=== PATIENT | female | born 1985 | race Caucasian/White ===

== ENCOUNTER 2019-05-06 06:14 | Day surgery (SDC) | payer OTHER, SELFPAY ==
[2019-05-06] VITALS (16 sets, daily range): BP systolic 103–140; BP diastolic 59–85; PULSE 45–81; RESP 8–16; TEMP 36.2–37.1; O2SAT 96–99; BMI 32.2
--- NOTE | 2019-05-06 | PATH_ITS ---
[facility] Accession Number: [id number] . 01 Material submitted: . uterus - UTERUS, BILATERAL FALLOPIAN TUBES . 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 With Bilateral Fallopian Tubes: Inactive endometrium, negative for atypia. Multifocal adenomyosis, negative for atypia. Multiple small paratubal cysts, negative for atypia. MRV/05/08/2019 . 02 Electronically signed: . Flynn Carey MD, Pathologist NPI- [id number] . 01 Gross description: . Received in formalin, labeled uterus, bilateral fallopian tubes, is a morcellated uterus (161 grams, 14.8 x 12.0 x 4.3 cm in aggregate) and two fimbriated fallopian tubes (tube #1: length-5.8 cm, diameter-0.3 cm; tube #2: length-6.1 cm, diameter-0.3 cm). The cervix and ovaries are absent. The specimen cannot be oriented and the endometrium and myometrium cannot be grossly measured. The parenchyma is rousseau and unremarkable. The serosa is rousseau smooth and shiny. The fallopian tubes have rousseau-asher smooth shiny serosa with multiple paratubal cysts (0.1 cm-0.8 cm) containing clear colorless fluid. The lumens are rousseau and unremarkable. Section code: (A1-A4) parenchyma, airline security representative; (A5) fallopian tube #1, airline security representative serial sections; (A6) fimbria #1, bivalved, entirely submitted; (A7) fallopian tube #2, airline security representative serial sections; (A8) fimbria #2, bivalved, entirely submitted. ([id number]) /MRV . 02 Pathologist provided ICD-10: N80.0 . 02 CPT . 337124 Performed at: 01 [facility] [address] [id number] MD Magno Miguel MD Phone: [phone] Performed at: 02 [facility] [address] [place], [place] [id number] MD Bethanie Biggs MD Phone: [phone]
[2019-05-06] MEDS: LACTATED RINGERS 1,000 ML 100 ML IV (07:10)
[2019-05-06] MEDS: CEFAZOLIN 2 GM/100 ML FROZ.PIGGY IV (07:55)
--- NOTE | 2019-05-06 08:44 | SUR.OPER ---
Lithotomy on padded OR bed. Alexander Pad Positioner under torso. Head on pillow, arms padded and tucked at sides. Legs secured in padded yellow fins stirrups.
[2019-05-06] MEDS: BUPIVACAINE 0.5% W/ EPI (PF) VIAL 30 ML INJ (09:12)
[2019-05-06] MEDS: ROPIVACAINE 0.2% PF 2 MG/ML 10ML AMP 20 ML INJ (09:14)
--- NOTE | 2019-05-06 09:54 | PM.PREOP ---
Pre-operative Note Interval Note History & Physical reviewed/Exam performed by Physician: Yes Changes to H&P: No
[2019-05-06] MEDS: fentaNYL 100 MCG/2 ML INJ 50 MCG IV ×2 (10:03→10:08)
[2019-05-06] MEDS: ONDANSETRON 4 MG/2 ML INJ IV (10:36)
--- NOTE | 2019-05-06 10:36 | SUR.PHASEI ---
pt. stating I'm starting to feel nauseated, this author gave pt. QueaseEase to breath in aroma as well as reglan IV
--- NOTE | 2019-05-06 10:39 | SUR.PHASEI ---
Pt. continues to be groggy while in PACU; VSS, pain level improving but still requiring 02 via NC @ 2L
[2019-05-06] MEDS: METOCLOPRAMIDE 10 MG/2 ML INJ IV (10:50)
--- NOTE | 2019-05-06 10:50 | SUR.PHASEI ---
pt. sat up for emesis, approx 50cc bile contents; medicated with additional antiemedic
--- NOTE | 2019-05-06 10:53 | SUR.PHASEI ---
addendum (correction) to first note, zofran given initially for nausea, when pt. had emesis the additional antiemedic given was reglan
--- NOTE | 2019-05-06 11:06 | SUR.PHASEI ---
At this time pt. appeared stable enough to move to phase II, after disconnecting monitor lines, pt. began to have emesis. Anesthesia aware, will continue to monitor pt. in PACU allowing pt. wake up more and observe for further nausea. Reported off to Bethanie CROCKER at this point.
--- NOTE | 2019-05-06 11:29 | SUR.PHASEI ---
Pt. continues to have dry heaves, will notify anesthesia.
--- NOTE | 2019-05-06 11:39 | SUR.PHASEI ---
Anesthesia ordered a scopalamine patch at this time
[2019-05-06] MEDS: SCOPOLAMINE 1 PATCH TOP (11:50)
--- NOTE | 2019-05-06 11:56 | SUR.PHASEI ---
'scopolamine patch applied behind right ear, will monitor effects.
[2019-05-06] MEDS: TRAMADOL 50 MG TABLET 100 MG PO (12:43)
--- NOTE | 2019-05-06 14:19 | SUR.PHASEII ---
Pt able to urinate without issue. pain controlled with PO tramadol. up with 1 person asst. d/c instructions provided to pt and her . aware to contact MD to make f/u apt as well as for any additional questions or concerns. Dressings were CDI. pt left in w/c with RN escort.
--- NOTE | 2019-05-07 08:12 | P.OP_ITS ---
Operative Date/Time/Diagnoses Date of procedure: 05/06/19 Time of procedure: 10:00 Pre-op diagnosis: Abnormal uterine bleeding Fibroid uterus Post-op diagnosis: same Procedure: Procedures Operation Date: 05/06/19 07:45 Actual Procedures Side Surgeon p Laparoscopic Supracervical Hysterectomy with bilateral salpingectomy, removal of mirena IUD Eleonora Skinner MD Indications: Abnormal uterine bleeding Fibroid uterus Surgeon: Eleonora Skinner Research Computing Specialist: Sekou Alexis Anesthesia Type: General Operative Notes Findings: Ten week size fibroid uterus 3 cm simple left ovarian cyst Normal tubes Normal right ovary Normal liver, gallbladder, and appendix Closure Type: primary Specimen(s): left tube, right tube and uterus Applied: catheter (Removed at the end of the case) Estimated blood loss (mL): 75 Blood products transfused: none Procedure in detail: The patient was taken to the operating room where she was placed in the dorsal supine position. After adequate general endotracheal anesthesia was achieved, she was placed in the dorsal lithotomy position, and prepped and draped in the usual sterile fashion. A timeout was performed. A bivalve speculum was placed into the vagina and the anterior lip of the cervix grasped with a single-tooth tenaculum. The cervical os was sequentially dilated until the ZUMI uterine manipulator could pass easily into the endometrial cavity. The single-tooth tenaculum was removed from the anterior lip of the cervix, and the bivalve speculum was removed from the vagina. Attention was then turned to the abdomen where 6 mL of half percent Marcaine with epinephrine were injected in the umbilical fold. A 5 mm incision was made. The Verhees needle was placed into the peritoneal cavity, and its placement confirmed by aspiration and drop test. The Verhees needle was removed. A 5 mm trocar was placed without difficulty. 2 other incisions were made midway between the pubic symphysis and umbilicus after 5 mL of half percent Marcaine with epinephrine were injected. These were 5 mm incisions. Two 5 mm trochars were placed under direct visualization. The right tube was grasped with an atraumatic grasper. Using the plasma kinetic with settings of 40 W the mesosalpinx was cauterized and cut all the way down to the cornua of the uterus. The cornua of the uterus was then grasped with an atraumatic grasper. The utero-ovarian ligaments were cauterized and cut. The round ligament and broad ligament was cauterized and cut with plasma kinetic. Hemostasis was achieved. The bladder flap was created using the plasma kinetic with cautery and cut retirement across. The uterine arteries on the right side were extensively cauterized with plasma kinetic. All of this was repeated on the left side. The remainder of the bladder flap was created using the plasma kinetic, and the bladder taken down off the lower uterine segment and cervix. The Zumi uterine manipulator was removed from the uterus. A moistened sponge stick was placed into the vagina. Using the En doloop, the cervix was amputated from the uterus 2 cm above the uterosacral ligaments, after the ZUMI uterine manipulator was removed from the uterus. There was a small amount of bleeding noted from the posterior edge of the cervix, and this was cauterized for hemostasis. A sponge stick was placed into the vagina. 6 mL of half percent Marcaine with epinephrine were injected above the pubic symphysis. A 12 mm trocar was placed. An Endobag was placed through the suprapubic trocar and the uterus placed into the Endobag. The trocar was removed. The Jose placed into the endobag. The uterus was hand morcellated in approximately 10 pieces. The Endobag was removed from the peritoneal cavity. The pelvis was copiously irrigated with warm normal saline. No bleeding was noted. 20 cc of 0.2% ropivacaine were placed over the pedicles in the pelvis. The instruments were removed from the abdomen. The CO2 was allowed to escape. The suprapubic incision was closed on the fascia with 0 Vicryl. 2 simple interrupted sutures with 3 0 Vicryl were placed in the subcutaneous layer. All of the incisions were closed with 4-0 undyed Vicryl in a subcuticular fashion. The moistened sponge stick was removed from the vagina. Sponge, lap, and instrument counts were correct x-2. The patient tolerated the procedure well, was taken to PACU in stable condition. Complications: none Post-operative Condition: stable Disposition: PACU Plan for aftercare: Home after recovery
== END 2019-05-06 14:05 | disposition home or self-care (01) ==
LOC: OR 06:15 → AC 09:57
PROVIDERS: PCP Family Medicine; Visit Provider Obstetrics & Gynecology
PROC: 0UT94ZL Resection of Uterus, Supracervical, Percutaneous Endoscopic Approach (ICD-10-PCS; CPT 58542; principal; 2019-05-06 07:45)
DX: N93.9 Abnormal uterine and vaginal bleeding, unspecified (principal); D25.9 Leiomyoma of uterus, unspecified; N80.0 Endometriosis of uterus; N83.8 Other noninflammatory disorders of ovary, fallopian tube and broad ligament; N83.292 Other ovarian cyst, left side
CPT/HCPCS: 58542; J0690; J1100; J1885; J2250; J2405; J2704; J2765; J2795; J3010

== ENCOUNTER → 2021-10-25 12:56 | Outpatient (CLI) | payer OTHER, SELFPAY ==
--- NOTE | 2021-10-25 | DI.US.S_ITS ---
ULTRASOUND OF RIGHT BREAST AND AXILLA: 10/25/2021 CLINICAL: Palpable right axilla lump. Comparison is made to exam dated: 10/25/2021 [facility]. Real-time ultrasound of the right breast axilla was performed. Killian scale images of the real-time examination were reviewed. There are normal lymph nodes in the right axilla. No significant abnormalities were seen sonographically in the right axilla. IMPRESSION: BENIGN There is no sonographic evidence of malignancy. There is no abnormality seen in the right axilla to correspond with the area of clinical/palpable concern, however, recommend clinical follow up for persistent or worsening symptoms, or development of any clinically suspicious findings. Recommend initiating routine screening mammograms at age 38. Findings and recommendations were conveyed to the patient during today's evaluation. This exam was interpreted at Station ID: [id number]. Electronically Signed By: Rah Moya M.D. aty/:10/25/2021 14:33:35 letter sent: Clinical Evaluation Ultrasound BI-RADS: 2 Benign
--- NOTE | 2021-10-25 | DI.MG.S_ITS ---
BILATERAL DIGITAL DIAGNOSTIC MAMMOGRAM 3D/2D: 10/25/2021 CLINICAL: Right axillary swelling. Baseline. No prior exams were available for comparison. The tissue of both breasts is heterogeneously dense. This may lower the sensitivity of mammography. No significant masses, calcifications, or other findings are seen in either breast. IMPRESSION: INCOMPLETE: NEEDS ADDITIONAL IMAGING EVALUATION There is no abnormality seen in the right axilla to correspond with the area of clinical concern and palpable abnormality indicated by triangular marker in the right axilla, however, further evaluation with right ultrasound is recommended which is scheduled to immediately follow this examination. This exam was interpreted at Station ID: [id number]. NOTE: For mammograms, a report in lay terms will be sent to the patient. Approximately 15% of breast malignancies will not be visualized mammographically. In the management of a palpable breast mass, a negative mammogram must not discourage biopsy of a clinically suspicious lesion. Electronically Signed By: Rah Moya M.D. aty/:10/25/2021 14:14:39 ACR BI-RADS Category 0: Incomplete [id number]
== END ==
PROVIDERS: PCP Family Medicine; Referring Provider Family Medicine; Visit Provider Family Medicine
DX: L04.9 Acute lymphadenitis, unspecified (principal); R92.2 Inconclusive mammogram
CPT/HCPCS: 76642; 76882; 77066; G0279

== ENCOUNTER 2022-11-24 12:43 | Emergency (ER) | payer OTHER, SELFPAY ==
[2022-11-24] VITALS (11 sets, daily range): BP systolic 107–186; BP diastolic 56–96; PULSE 62–84; RESP 16; TEMP 36.6; O2SAT 97–100; BMI 35.2
[2022-11-24 13:18] LABS: Bacteria Urine None Seen; Culture Indicated Urine Cult Not Indicated; RBC Urine 1-5/HPF (0-5/HPF); Squamous Epithelial Cell Urine 0-1 /HPF (0-5/HPF); WBC Urine 0-1/HPF (0-5/HPF)
[2022-11-24 13:21] LABS: Add Manual Diff / Slide Review NO; Basophils Absolute Auto 100 /uL (0-100); Basophils Percent Auto 0.8 % (0-2); Eosinophils Absolute Auto 100 /uL (0-450); Eosinophils Percent Auto 1.5 % (2-4); Hematocrit 41.8 % (36-46); Hemoglobin 13.8 g/dL (12.0-16.0); Lymphocytes Absolute Auto 1400 /uL (1100-4500); Lymphocytes Percent Auto 19.8 % (25-40); Mean Corpuscular HGB Conc 33.1 % (30-36); Mean Corpuscular Hemoglobin 29.4 PG (26-34); Monocytes Absolute Auto 300 /uL (0-900); Monocytes Percent Auto 4.8 % (3-14); Neutrophils Absolute Auto 5200 /uL (1500-7000); Neutrophils Percent Auto 73.1 % (50-75); Platelet Count 271 X10^3/uL (150-400); Red Cell Distribution Width 13.8 % (11.6-14.8); White Blood Cell Count 7.1 X10^3/uL (4.5-11.0)
[2022-11-24 13:33] LABS: Alanine Aminotransferase 23 IU/L (<35); Albumin 4.7 g/dL (3.5-5.0); Albumin Globulin Ratio 1.3 (1.0-2.8); Alkaline Phosphatase 63 U/L (38-126); Aspartate Aminotransferase 20 IU/L (14-36); BUN Creatinine Ratio 20.9 (6-22); Bilirubin Total 0.4 mg/dL (0.2-1.3); Blood Urea Nitrogen 14 mg/dL (7-17); Calcium 9.5 mg/dL (8.4-10.2); Carbon Dioxide 32 mmol/L (22-32); Chloride 100 mmol/L (98-107); Estimated Glomerular Filt Rate > 60 mL/min (>60); Globulin 3.5 g/dL (1.7-4.1); Glucose 88 mg/dL (70-100); HEMOLYSIS < 15 (0-50); Lipase 654 U/L (23-300); Potassium 3.6 mmol/L (3.4-5.1); Sodium 139 mmol/L (137-145); Total Protein 8.2 g/dL (6.3-8.2)
--- NOTE | 2022-11-24 13:59 | DI.CT.S_ITS ---
PROCEDURE: CT ABDOMEN PELVIS W CON INDICATIONS: left side pain TECHNIQUE: After the administration of intravenous contrast, axial sections acquired from the lung bases to the pubic symphysis. Coronal and sagittal reformats were performed. For radiation dose reduction, the following was used: automated exposure control, adjustment of mA and/or kV according to patient size. COMPARISON: None. FINDINGS: Image quality: Excellent. Lung bases: Mild bibasilar dependent atelectasis are seen posteriorly. Heart: No significant findings. ABDOMEN: Liver: Unremarkable. Gallbladder: Gallbladder is within normal limits. Biliary ducts: Unremarkable. Pancreas: Unremarkable. Spleen: Unremarkable. Adrenal Glands: Unremarkable. Kidneys and Ureters: Unremarkable. Stomach and Bowel: Stomach, small bowel loops, and colon are unremarkable. Appendix is visualized and is within normal limits. Peritoneum: No abnormal intraperitoneal fluid. No free air. Ventral Wall: No hernias. Abdominal Nodes: No retroperitoneal or mesenteric adenopathy by size criteria. Vessels: Aorta and inferior vena cava are normal in size. PELVIS: Pelvic Organs: Unremarkable. Bladder: Unremarkable. Pelvic Nodes: No enlarged lymph nodes. Miscellaneous: No hernias are seen. Bones: No suspicious bony lesions. No acute vertebral body compression fracture. IMPRESSION: 1. No acute inflammatory process is seen in abdomen or pelvis. No free fluid or free air. Normal appendix. 2. No renal stones or hydronephrosis. No hydroureter. Normal appearing urinary bladder. Dictated by: Chung Izaguirre M.D. on 11/24/2022 at 14:32 Approved by: Chung Izaguirre M.D. on 11/24/2022 at 14:46
--- NOTE | 2022-11-24 13:59 | DI.CT.S_ITS ---
PROCEDURE: CT ANGIO CHEST PE PROTOCOL INDICATIONS: left side pain TECHNIQUE: After the administration of intravenous contrast, 2 mm thick sections acquired from the pulmonary apices to the posterior costophrenic angles. 3-dimensional maximum intensity projection (MIP) coronal and sagittal reformats were then acquired through the thorax. For radiation dose reduction, the following was used: automated exposure control, adjustment of mA and/or kV according to patient size. COMPARISON: None. FINDINGS: Image quality: Excellent. Pulmonary arteries: Pulmonary arteries are normal in size, and demonstrate no intraluminal filling defects to suggest central pulmonary embolism. Lungs and pleura: Mild dependent atelectasis in posterior aspect of bilateral lung quiroz are seen. No focal infiltrate. No pleural effusions or pneumothorax. Central and peripheral airways are patent. Mediastinum: Heart size is normal, without pericardial effusion. No mediastinal or hilar adenopathy. Thoracic aorta is normal in caliber and enhancement. Esophagus is normal in caliber, without hiatal hernia. Bones and chest wall: No suspicious bony lesions. Ribs and thoracic spine appear intact throughout. Thyroid gland is normal in size. Peripherally calcified hypodensity involving lower pole of right thyroid lobe is seen measures 1 centimeter in size. No axillary or supraclavicular adenopathy. Abdomen: Visualized upper abdominal solid organs appear normal in the early arterial phase of enhancement. IMPRESSION: 1. No evidence of pulmonary emboli. No thoracic aortic aneurysm or dissection. 2. Mild dependent atelectasis in posterior aspect of bilateral lung quiroz. Bilateral lungs are otherwise clear. 3. No mediastinal or hilar lymphadenopathy by size criteria. 4. Mildly enlarged right thyroid lobe with peripherally calcified right lower lobe thyroid nodule as above. If indicated, ultrasound of thyroid gland can be done for further evaluation as outpatient. Dictated by: Chung Izaguirre M.D. on 11/24/2022 at 14:46 Approved by: Chung Izaguirre M.D. on 11/24/2022 at 15:03
--- NOTE | 2022-11-24 13:59 | ED.ABDPAIN ---
HPI - Abdominal Pain General Chief Complaint: Abdominal Pain Stated Complaint: dull stabbing pain on LT flank T-4 Time Seen by Provider: 11/24/22 13:53 Source: patient Mode of arrival: Ambulatory History of Present Illness HPI narrative: Patient here for left side upper abdominal lower abdominal pain off and on for 4 days. Does not have pain at nighttime or when sleeping. Nothing makes it better or worse. It is sharp pain. Does not radiate to the back. No nausea or vomiting sweating. No dyspnea. No black or bloody stools. No urinary complaints. No dyspnea. At this time denies any pain. Does not drink alcohol daily. Related Data Home Medications Medication Instructions Recorded Confirmed cholecalciferol (vitamin D3) 125 5,000 unit PO DAILY 02/25/19 06/13/19 mcg (5,000 unit) capsule ferrous sulfate 325 mg (65 mg 325 mg PO DAILY 05/06/19 06/13/19 iron) tablet (iron) Previous Rx's Medication Instructions Recorded pantoprazole 40 mg tablet,delayed 40 mg PO DAILY #30 tabs 11/24/22 release (Protonix) sucralfate 1 gram tablet (Carafate) 1 g PO BID #30 tabs 11/24/22 Allergies Allergy/AdvReac Type Severity Reaction Status Date / Time hydrocodone [From Vicodin] AdvReac Mild Nausea Verified 11/24/22 12:56 oxycodone [From Percocet] AdvReac Nausea Verified 11/24/22 12:56 Review of Systems Review of Systems Narrative: GENERAL: negative chills, fatigue, malaise, fever, sweats. HEENT: negative sinus pain, ear pain, sore throat RESPIRATORY: negative dyspnea, cough CARDIOVASCULAR: negative chest pain, palpitations GASTROINTESTINAL: negative nausea, vomiting, positive abdominal pain : negative dysuria, frequency, hematuria MUSCULOSKELETAL: negative muscle or bony pain SKIN: negative rash, skin lesions NEUROLOGIC: negative weakness, numbness ROS Unobtainable: All systems reviewed & are unremarkable except as noted in HPI and below Patient History Medical History Anxiety Bruises easily Celiac disease Depression Eczema IBS (irritable bowel syndrome) Surgical History H/O wrist surgery S/P laparoscopic supracervical hysterectomy (~08/26/19) Status post bilateral salpingectomy (~05/06/19) Status post myringotomy with insertion of tube Social History household members: spouse and children Smoking Status: Current every day smoker Smoking Status: Current every day smoker tobacco type: vaping alcohol intake frequency: holidays/special occasions only Substance Use Type: marijuana Exam Narrative Exam Narrative: GENERAL: in no distress, not toxic not dyspneic HEAD: Normocephalic. EYES: Pupils equal round ENT: Mucous membranes moist. NECK: Trachea midline. CARDIOVASCULAR: Regular rate and rhythm without murmurs RESPIRATORY: Clear to auscultation. Breath sounds equal bilaterally. No wheezes, rales, or rhonchi. GASTROINTESTINAL: Abdomen soft, non-tender, abdomen is nontender no peritoneal signs no left-sided abdominal tenderness. No CVA tenderness, bowel sounds are present EXTREMITIES: No gross deformities. BACK: No flank tenderness. NEURO: AOx4. SKIN: Warm and dry PSYCH: Not anxious, is cooperative Initial Vital Signs Initial Vital Signs: Vital Signs Temperature 97.8 F 11/24/22 12:50 Pulse Rate 74 11/24/22 12:50 Respiratory Rate 16 11/24/22 12:50 Blood Pressure 161/96 H 11/24/22 12:50 Pulse Oximetry 97 11/24/22 12:50 Oxygen Delivery Method Room Air 11/24/22 12:50 Course Orders Ordered: Discontinued Medications Acetaminophen (Acetaminophen 325 Mg Tablet) 975 mg PO NOW ONE Stop: 11/24/22 14:18 Last Admin: 11/24/22 14:21 Dose: 975 mg Documented By: RB Al Hydrox/Mg Hydrox/Simethicone 20 ml/ Lidocaine HCl 15 ml 0 ml PO NOW ONE Stop: 11/24/22 16:55 Last Admin: 11/24/22 17:00 Dose: 35 ml Documented By: CONNIE Sodium Chloride (Normal Saline 0.9%) 500 mls @ 1,000 mls/hr IV BOLUS ONE Stop: 11/24/22 14:28 Last Infusion: 11/24/22 15:20 Dose: 0 mls/hr Documented By: Admin: 11/24/22 14:15 Dose: 1,000 mls/hr Documented By: JAMIE Ondansetron HCl (Ondansetron 4 Mg/2 Ml Inj) 4 mg IV NOW PRN PRN Reason: Nausea And Vomiting Last Admin: 11/24/22 14:16 Dose: 4 mg Documented By: JAMIE Pantoprazole Sodium (Pantoprazole 40 Mg Vial) 40 mg IV NOW ONE Stop: 11/24/22 16:17 Last Admin: 11/24/22 16:21 Dose: 40 mg Documented By: JANICE Vital Signs Vital signs: Vital Signs - 8 hr 11/24/22 12:50 11/24/22 14:14 11/24/22 14:15 Temperature 97.8 F Pulse Rate 74 78 Respiratory Rate 16 Blood Pressure 161/96 H 186/95 H Pulse Oximetry 97 Oxygen Delivery Method Room Air 11/24/22 14:15 11/24/22 14:30 11/24/22 14:30 Temperature Pulse Rate 84 Respiratory Rate Blood Pressure 165/71 H Pulse Oximetry 100 97 Oxygen Delivery Method 11/24/22 14:45 11/24/22 15:38 11/24/22 15:38 Temperature Pulse Rate 62 68 Respiratory Rate Blood Pressure 107/66 Pulse Oximetry 98 97 Oxygen Delivery Method 11/24/22 15:45 11/24/22 16:00 11/24/22 16:00 Temperature Pulse Rate 68 65 Respiratory Rate Blood Pressure 109/56 L Pulse Oximetry 97 97 Oxygen Delivery Method MDM - Abdominal Pain Lab Data 11/24/22 13:10 11/24/22 13:10 Labs: Lab Results 11/24/22 11/24/22 11/24/22 Range/Units 12:51 13:10 13:10 WBC 7.1 (4.5-11.0) X10^3/uL RBC 4.70 (4.0-5.2) X10^6/uL Hgb 13.8 (12.0-16.0) g/dL Hct 41.8 (36-46) % MCV 89.0 (80-100) fL MCH 29.4 (26-34) PG MCHC 33.1 (30-36) % RDW 13.8 (11.6-14.8) % Plt Count 271 (150-400) X10^3/uL Neut % (Auto) 73.1 (50-75) % Lymph % (Auto) 19.8 L (25-40) % [place] % (Auto) 4.8 (3-14) % Eos % (Auto) 1.5 L (2-4) % Baso % (Auto) 0.8 (0-2) % Neut # (Auto) 5200 (4467-3153) /uL Lymph # (Auto) 1400 (7036-4178) /uL [place] # (Auto) 300 (0-900) /uL Eos # (Auto) 100 (0-450) /uL Baso # (Auto) 100 (0-100) /uL Sodium 139 (137-145) mmol/L Potassium 3.6 (3.4-5.1) mmol/L Chloride 100 (98-107) mmol/L Carbon Dioxide 32 (22-32) mmol/L BUN 14 (7-17) mg/dL Creatinine 0.67 (0.52-1.04) mg/dL Estimated GFR > 60 (>60) mL/min BUN/Creatinine Ratio 20.9 (6-22) Glucose 88 (70-100) mg/dL Calcium 9.5 (8.4-10.2) mg/dL Total Bilirubin 0.4 (0.2-1.3) mg/dL AST 20 (14-36) IU/L ALT 23 (<35) IU/L Alkaline Phosphatase 63 (38-126) U/L Total Protein 8.2 (6.3-8.2) g/dL Albumin 4.7 (3.5-5.0) g/dL Globulin 3.5 (1.7-4.1) g/dL Albumin/Globulin Ratio 1.3 (1.0-2.8) Lipase 654 H (23-300) U/L Urine RBC 1-5/hpf (0-5/HPF) Urine WBC 0-1/hpf (0-5/HPF) Ur Squamous Epith Cells 0-1 /hpf (0-5/HPF) Urine Bacteria None seen (None) Ur Culture Indicated? Cult not indicated Point of care testing: Urine Dip Bedside Urine Glucose Negative Bedside Urine Bilirubin - Negative Bedside Urine Ketone - Negative Urine Specific [place] 1.015 Bedside Urine Occult Blood + Bedside Urine pH 6.5 Bedside Urine Protein - Negative Bedside Urine Urobilinogen - Negative Bedside Urine Nitrite - Negative Bedside Urine Leukocytes - Negative Esterase Imaging Data CT scan - chest: Radiologist's Impression: PROCEDURE:? CT ANGIO CHEST PE PROTOCOL ? INDICATIONS:? left side pain ? TECHNIQUE:? After the administration of intravenous contrast, 2 mm thick sections acquired from the pulmonary apices to the posterior costophrenic angles.? 3-dimensional maximum intensity projection (MIP) coronal and sagittal reformats were then acquired through the thorax.? For radiation dose reduction, the following was used:? automated exposure control, adjustment of mA and/or kV according to patient size.? ? COMPARISON:? None. ? FINDINGS:? Image quality:? Excellent.? ? Pulmonary arteries:? Pulmonary arteries are normal in size, and demonstrate no intraluminal filling defects to suggest central pulmonary embolism.? ? Lungs and pleura:? Mild dependent atelectasis in posterior aspect of bilateral lung quiroz are seen.? No focal infiltrate.? No pleural effusions or pneumothorax.? Central and peripheral airways are patent.? ? Mediastinum:? Heart size is normal, without pericardial effusion.? No mediastinal or hilar adenopathy.? Thoracic aorta is normal in caliber and enhancement.? Esophagus is normal in caliber, without hiatal hernia.? ? Bones and chest wall:? No suspicious bony lesions.? Ribs and thoracic spine appear intact throughout.? Thyroid gland is normal in size.? Peripherally calcified hypodensity involving lower pole of right thyroid lobe is seen measures 1 centimeter in size.? No axillary or supraclavicular adenopathy.? ? Abdomen:? Visualized upper abdominal solid organs appear normal in the early arterial phase of enhancement.? ? IMPRESSION:? 1. No evidence of pulmonary emboli.? No thoracic aortic aneurysm or dissection. ? 2. Mild dependent atelectasis in posterior aspect of bilateral lung quiroz.? Bilateral lungs are otherwise clear. ? 3. No mediastinal or hilar lymphadenopathy by size criteria. ? 4. Mildly enlarged right thyroid lobe with peripherally calcified right lower lobe thyroid nodule as above.? If indicated, ultrasound of thyroid gland can be done for further evaluation as outpatient.? ? Dictated by: Chung Izaguirre M.D. on 11/24/2022 at 14:46 ? ? Approved by: Chung Izaguirre M.D. on 11/24/2022 at 15:03 ? CT scan - abdomen/pelvis: Radiologist's Impression: PROCEDURE:? CT ABDOMEN PELVIS W CON ? INDICATIONS:? left side pain ? TECHNIQUE:? After the administration of intravenous contrast, axial sections acquired from the lung bases to the pubic symphysis.? Coronal and sagittal reformats were performed.? For radiation dose reduction, the following was used:? automated exposure control, adjustment of mA and/or kV according to patient size.? ? COMPARISON:? None. ? FINDINGS:? Image quality:? Excellent.? ? Lung bases:? Mild bibasilar dependent atelectasis are seen posteriorly. Heart:? No significant findings. ? ABDOMEN: Liver:? Unremarkable.? ? Gallbladder:? Gallbladder is within normal limits.? Biliary ducts:? Unremarkable.? ? Pancreas:? Unremarkable.? ? Spleen:? Unremarkable.? ? Adrenal Glands:? Unremarkable.? ? Kidneys and Ureters:? Unremarkable.? ? ? Stomach and Bowel:? Stomach, small bowel loops, and colon are unremarkable.? Appendix is visualized and is within normal limits. Peritoneum:? No abnormal intraperitoneal fluid.? No free air.? ? Ventral Wall: ? No hernias.? Abdominal Nodes:? No retroperitoneal or mesenteric adenopathy by size criteria.? Vessels:? Aorta and inferior vena cava are normal in size.? ? PELVIS: Pelvic Organs:? Unremarkable.? ? Bladder:? Unremarkable.? ? Pelvic Nodes: No enlarged lymph nodes.? Miscellaneous: No hernias are seen. ? ? ? Bones:? No suspicious bony lesions.? No acute vertebral body compression fracture. ? ? IMPRESSION:? 1. No acute inflammatory process is seen in abdomen or pelvis.? No free fluid or free air.? Normal appendix. ? 2. No renal stones or hydronephrosis.? No hydroureter.? Normal appearing urinary bladder. ? ? ? Dictated by: Chung Izaguirre M.D. on 11/24/2022 at 14:32 ? ? Approved by: Chung Izaguirre M.D. on 11/24/2022 at 14:46 ? [facility] Narrative Medical decision making narrative: Patient here for left side upper abdominal lower abdominal pain off and on for 4 days. Does not have pain at nighttime or when sleeping. Nothing makes it better or worse. It is sharp pain. Does not radiate to the back. No nausea or vomiting sweating. No dyspnea. No black or bloody stools. No urinary complaints. No dyspnea. At this time denies any pain. Does not drink alcohol daily. After history and exam CBC CMP lipase urinalysis CT chest abdomen pelvis ordered normal saline [facility] CC: Left-sided abdominal pain Complicating co-morbidities: None Data collected from: Patient Medical records reviewed: No previous visits here for this complaint Differential considered: Includes but not limited to pulmonary embolism/pancreatitis/gastritis/diverticulosis diverticulitis bowel obstruction Exam documented above, pertinent findings include: Nontender abdomen Lab Test results independently reviewed as above. Pertinent findings: WBC 7.1 hemoglobin 13 hematocrit 41 sodium 139 potassium 3.6 BUN 14 creatinine 0.67 AST 20 ALT 23 lipase 654 Imaging studies independently reviewed: CT chest PE protocol no acute process CT abdomen pelvis no acute process Treatments: Normal saline Re-evaluations: 4:20 p.m.. Reviewed results with patient. Pain-free at this time. I did review that imaging is unremarkable at this time however lipase elevated but pancreas on CT unremarkable. She does understand she will need further workup for possible gastritis. Will need endoscopy. She understands at this time it will take additional testing and outpatient exam is for evaluation. Not toxic at discharge. Return precautions reviewed with her. Discussion: Appropriate for discharge home. Exam and laboratory studies and imaging are reassuring. Lipase levels or nonspecific. Patient possibly developing gastritis. Protonix started here. Prescription provided for Protonix and Carafate. Patient will need outpatient endoscopy and further evaluation workup. Not toxic at discharge. Return precautions reviewed with her. She desires discharge home Diagnosis: Abdominal pain Discharge Plan Departure Patient Disposition: Home Clinical Impression: Abdominal pain Instructions: DI for Abdominal Pain-Adult Activity Restrictions/Additional Instructions: Please see family doctor for re-evaluation of your abdominal pain. You may need referral to General surgery for endoscopy stomach. Laboratory studies and imaging are reassuring at this time. However lipase levels for your pancreas were slightly elevated, however CT scan of your pancreas does not show any inflammation. No fried fatty greasy foods or carbonated drinks. Prescription medication has been sent to your pharmacy to continue. Return if worse if any questions or concerns Prescriptions: New pantoprazole [Protonix] 40 mg tablet,delayed release (DR/EC) 40 mg PO DAILY Qty: 30 0RF sucralfate [Carafate] 1 gram tablet 1 g PO BID Qty: 30 0RF No Action cholecalciferol (vitamin D3) 5,000 unit capsule 5,000 unit PO DAILY ferrous sulfate [iron] 325 mg (65 mg iron) Tablet 325 mg PO DAILY Referrals: Vu,Lesly S, DISCIPLIN[employer] HEARING OFFICER [Primary Care Provider] - Stand Alone Forms: Patient Portal/API, Work Release Note
[2022-11-24] MEDS: SODIUM CHLORIDE 0.9% 500 ML 1000 ML IV (14:15)
[2022-11-24] MEDS: ONDANSETRON 4 MG/2 ML INJ IV (14:16)
[2022-11-24] MEDS: ACETAMINOPHEN 325 MG TABLET 975 MG PO (14:21)
[2022-11-24] MEDS: PANTOPRAZOLE 40 MG VIAL IV (16:21)
[2022-11-24] MEDS: MAG HYDROX/ALUMINUM/SIMETH SUS 20 ML, LIDOCAINE VISCOUS 2% 15 ML PO (17:00)
== END 2022-11-24 17:10 | disposition home or self-care (01) ==
PROVIDERS: Emergency Provider Emergency Medicine; PCP Nurse Practitioner
DX: R10.12 Left upper quadrant pain (principal); R10.32 Left lower quadrant pain
CPT/HCPCS: 36415; 71275; 74177; 80053; 81003; 81015; 83690; 85025; 96361; 96374; 96375; 99284; C9113; J2405; Q9967

== ENCOUNTER 2023-03-10 19:17 | Emergency (ER) | payer OTHER, SELFPAY ==
[2023-03-10] VITALS (8 sets, daily range): BP systolic 128–150; BP diastolic 61–100; PULSE 68–88; RESP 18; TEMP 36.5; O2SAT 97–100; BMI 37.0
--- NOTE | 2023-03-10 19:24 | DI.RAD.S_ITS ---
PROCEDURE: XR CHEST 1V INDICATIONS: Shortness of breath TECHNIQUE: One view of the chest was acquired. COMPARISON: None. FINDINGS: Surgical changes and devices: None. Lungs and pleura: Lungs are clear. No pleural effusions or pneumothorax. Mediastinum: Mediastinal contours appear normal. Heart size is normal. Bones and chest wall: No suspicious bony lesions. Overlying soft tissues appear unremarkable. IMPRESSION: No acute cardiopulmonary abnormality. Dictated by: Dante Box M.D. on 03/10/2023 at 18:59 Approved by: Dante Box M.D. on 03/10/2023 at 18:59
[2023-03-10 20:09] LABS: Add Manual Diff / Slide Review NO; Basophils Absolute Auto 100 /uL (0-100); Eosinophils Absolute Auto 100 /uL (0-450); Eosinophils Percent Auto 1.8 % (2-4); Hemoglobin 13.5 g/dL (12.0-16.0); Lymphocytes Absolute Auto 2400 /uL (1100-4500); Lymphocytes Percent Auto 30.8 % (25-40); Mean Corpuscular HGB Conc 33.9 % (30-36); Mean Corpuscular Hemoglobin 30.1 PG (26-34); Mean Corpuscular Volume 88.8 fL (80-100); Monocytes Absolute Auto 300 /uL (0-900); Monocytes Percent Auto 4.3 % (3-14); Neutrophils Absolute Auto 4800 /uL (1500-7000); Neutrophils Percent Auto 62.1 % (50-75); Platelet Count 292 X10^3/uL (150-400); Red Cell Distribution Width 13.8 % (11.6-14.8); White Blood Cell Count 7.8 X10^3/uL (4.5-11.0)
[2023-03-10 20:10] LABS: INR 1.1 (0.9-1.3); Prothrombin Time 12.4 SECONDS (10.1-12.7)
[2023-03-10 20:14] LABS: Lactate (Lactic Acid) 0.8 mmol/L (0.7-2.1)
[2023-03-10 20:17] LABS: Alanine Aminotransferase 30 IU/L (<35); Albumin 4.2 g/dL (3.5-5.0); Albumin Globulin Ratio 1.2 (1.0-2.8); Alkaline Phosphatase 84 U/L (38-126); Aspartate Aminotransferase 23 IU/L (14-36); BUN Creatinine Ratio 21.9 (6-22); Bilirubin Total 0.4 mg/dL (0.2-1.3); Blood Urea Nitrogen 14 mg/dL (7-17); Calcium 8.8 mg/dL (8.4-10.2); Carbon Dioxide 29 mmol/L (22-32); Chloride 102 mmol/L (98-107); Estimated Glomerular Filt Rate > 60 mL/min (>60); Globulin 3.4 g/dL (1.7-4.1); Glucose 86 mg/dL (70-100); HEMOLYSIS < 15 (0-50); Potassium 3.7 mmol/L (3.4-5.1); Sodium 137 mmol/L (137-145); Total Protein 7.6 g/dL (6.3-8.2)
[2023-03-10 20:27] LABS: NT-proBNP (BNP-Adult 18+) 41 pg/mL (<125); Troponin I < 0.012 ng/mL (0.01-0.034)
--- NOTE | 2023-03-10 20:48 | ED_ITS ---
HPI - SOB/Dyspnea General Chief Complaint: Shortness of Breath/Dyspnea Stated Complaint: SOB Time Seen by Provider: 03/10/23 19:21 Source: patient Mode of arrival: Ambulatory History of Present Illness HPI Narrative: 37-year-old female former smoker presents with her and ongoing wheezing, SOB, and cough. She states that she has been having trouble for the past few weeks and had been seen and evaluated at the walk-in clinic. She felt some improvement with use of albuterol and was placed on a 5 day course of prednisone and felt well while on the medications but as soon as the steroids ran out she started having wheezing and cough again. She is a smoker though she is cutting back. She has had some sputum production but denies any fever or chills. She denies runny nose or sore throat. She is had no nausea, vomiting or diarrhea. She denies recent travel, history of blood clot or lower extremity pain, swelling or edema Related Data Home Medications Medication Instructions Recorded Confirmed cholecalciferol (vitamin D3) 125 5,000 unit PO DAILY 02/25/19 06/13/19 mcg (5,000 unit) capsule ferrous sulfate 325 mg (65 mg 325 mg PO DAILY 05/06/19 06/13/19 iron) tablet (iron) Previous Rx's Medication Instructions Recorded pantoprazole 40 mg tablet,delayed 40 mg PO DAILY #30 tabs 11/24/22 release (Protonix) sucralfate 1 gram tablet (Carafate) 1 g PO BID #30 tabs 11/24/22 benzonatate 200 mg capsule 200 mg PO BID PRN cough #20 caps 03/10/23 doxycycline hyclate 100 mg tablet 100 mg PO BID #20 tabs 03/10/23 prednisone 10 mg tablet See Rx Instructions .Route 03/10/23 .COMPLEX #30 tabs Allergies Allergy/AdvReac Type Severity Reaction Status Date / Time hydrocodone [From Vicodin] AdvReac Mild Nausea Verified 03/10/23 19:19 oxycodone [From Percocet] AdvReac Nausea Verified 03/10/23 19:19 Review of Systems Review of Systems Narrative: GENERAL: See HPI HEENT: See HPI RESPIRATORY: See HPI CARDIOVASCULAR: Denies chest pain, palpitations, orthopnea, edema, GASTROINTESTINAL: Denies nausea, vomiting, abdominal pain, diarrhea, constipation, melena. : Denies dysuria, frequency, incontinence, hematuria, urinary retention. MUSCULOSKELETAL: denies weakness, joint pain, or bony pain SKIN: Denies rash, skin lesions, or other NEUROLOGIC: Denies weakness, headache, numbness, change in speech, confusion, seizures, incoordination. PSYCHIATRIC: No concerning psychosocial issues. 12 point review of systems is negative except for those stated above Patient History Medical History Anxiety Bruises easily Celiac disease Depression Eczema IBS (irritable bowel syndrome) Surgical History H/O wrist surgery S/P laparoscopic supracervical hysterectomy (~05/06/19) Status post bilateral salpingectomy (~05/06/19) Status post myringotomy with insertion of tube Social History household members: spouse and children Smoking Status: Former smoker Smoking Status: Former smoker tobacco type: vaping alcohol intake frequency: holidays/special occasions only Substance Use Type: marijuana Exam Narrative Exam Narrative: GENERAL: [37] year old patient appears stated age. Well-developed patient, in mild distress. HEAD: Atraumatic. Normocephalic. EYES: Pupils equal round and reactive. Extraocular motions intact. No scleral icterus. No injection or drainage. ENT: Nose without bleeding, purulent drainage. Throat without erythema, tonsillar hypertrophy or exudate. Airway patent. NECK: Trachea midline. Non tender CARDIOVASCULAR: Regular rate and rhythm without murmurs, gallops, or rubs. RESPIRATORY: Frequent dry hacking cough with evidence of expiratory wheeze. No increased work of breathing, no use of accessory muscles, no hypoxemia. She is fully conversational. There is no evidence of rales or rhonchi GASTROINTESTINAL: Abdomen soft, non-tender, nondistended. EXTREMITIES: No edema or joint tenderness. BACK: Nontender without deformity or crepitance. No flank tenderness. NEURO: AOx3. SKIN: No rash or erythema of visible areas Initial Vital Signs Initial Vital Signs: Vital Signs Temperature 97.7 F 03/10/23 19:19 Pulse Rate 83 03/10/23 19:19 Respiratory Rate 18 03/10/23 19:19 Blood Pressure 133/100 H 03/10/23 19:19 Pulse Oximetry 100 03/10/23 19:19 Oxygen Delivery Method Room Air 03/10/23 19:19 Course Orders Ordered: ED Orders 03/10/23 19:24 XR chest 1V Stat EKG-12 Lead Stat Measure peak expiratory flow ONCE RT Consult Eval and Treat NOW 03/10/23 19:55 Complete Blood Count AUTO DIFF Stat Comprehensive Metabolic Panel Stat Lactate (Lactic Acid) Stat NT-proBNP (BNP-Adult 18+) Stat Prothrombin Time INR Stat Troponin I Stat 03/10/23 20:51 Urine Microscopic Stat Discontinued Medications Albuterol/Ipratropium (Albuterol/Ipratropium 3 Ml Ampul) 3 ml INH NOW ONE Stop: 03/10/23 21:18 Last Admin: 03/10/23 21:48 Dose: 3 ml Documented By: SASHA Methylprednisolone (Methylprednisolone 125 Mg/2 Ml Vial) 125 mg IV NOW ONE Stop: 03/10/23 21:18 Last Admin: 03/10/23 21:47 Dose: 125 mg Documented By: ALEC Vital Signs Vital signs: Vital Signs - 8 hr 03/10/23 19:19 03/10/23 20:34 03/10/23 20:37 Temperature 97.7 F Pulse Rate 83 68 Respiratory Rate 18 Blood Pressure 133/100 H Pulse Oximetry 100 100 99 Oxygen Delivery Method Room Air 03/10/23 20:37 03/10/23 21:00 03/10/23 21:01 Temperature Pulse Rate 72 Respiratory Rate Blood Pressure 146/90 H 150/76 H Pulse Oximetry 100 Oxygen Delivery Method 03/10/23 21:01 03/10/23 21:30 03/10/23 21:31 Temperature Pulse Rate 71 69 Respiratory Rate Blood Pressure 128/61 Pulse Oximetry 97 97 Oxygen Delivery Method 03/10/23 21:31 03/10/23 22:00 03/10/23 22:00 Temperature Pulse Rate 70 88 Respiratory Rate Blood Pressure 133/64 Pulse Oximetry 98 98 Oxygen Delivery Method MDM - SOB/Dyspnea Lab Data 03/10/23 19:55 03/10/23 19:55 Labs: Lab Results 03/10/23 03/10/23 03/10/23 Range/Units 19:55 19:55 19:55 WBC 7.8 (4.5-11.0) X10^3/uL RBC 4.50 (4.0-5.2) X10^6/uL Hgb 13.5 (12.0-16.0) g/dL Hct 40.0 (36-46) % MCV 88.8 (80-100) fL MCH 30.1 (26-34) PG MCHC 33.9 (30-36) % RDW 13.8 (11.6-14.8) % Plt Count 292 (150-400) X10^3/uL Neut % (Auto) 62.1 (50-75) % Lymph % (Auto) 30.8 (25-40) % [place] % (Auto) 4.3 (3-14) % Eos % (Auto) 1.8 L (2-4) % Baso % (Auto) 1.0 (0-2) % Neut # (Auto) 4800 (5323-0936) /uL Lymph # (Auto) 2400 (3701-4591) /uL [place] # (Auto) 300 (0-900) /uL Eos # (Auto) 100 (0-450) /uL Baso # (Auto) 100 (0-100) /uL PT 12.4 (10.1-12.7) SECONDS INR 1.1 (0.9-1.3) Sodium 137 (137-145) mmol/L Potassium 3.7 (3.4-5.1) mmol/L Chloride 102 (98-107) mmol/L Carbon Dioxide 29 (22-32) mmol/L BUN 14 (7-17) mg/dL Creatinine 0.64 (0.52-1.04) mg/dL Estimated GFR > 60 (>60) mL/min BUN/Creatinine Ratio 21.9 (6-22) Glucose 86 (70-100) mg/dL Lactate (0.7-2.1) mmol/L Calcium 8.8 (8.4-10.2) mg/dL Total Bilirubin 0.4 (0.2-1.3) mg/dL AST 23 (14-36) IU/L ALT 30 (<35) IU/L Alkaline Phosphatase 84 (38-126) U/L Troponin I < 0.012 (0.01-0.034) ng/mL NT-Pro-B Natriuret Pep 41 (<125) pg/mL Total Protein 7.6 (6.3-8.2) g/dL Albumin 4.2 (3.5-5.0) g/dL Globulin 3.4 (1.7-4.1) g/dL Albumin/Globulin Ratio 1.2 (1.0-2.8) Urine RBC (0-5/HPF) Urine WBC (0-5/HPF) Ur Squamous Epith Cells (0-5/HPF) Urine Bacteria (None) Ur Culture Indicated? 03/10/23 03/10/23 Range/Units 19:55 20:51 WBC (4.5-11.0) X10^3/uL RBC (4.0-5.2) X10^6/uL Hgb (12.0-16.0) g/dL Hct (36-46) % MCV (80-100) fL MCH (26-34) PG MCHC (30-36) % RDW (11.6-14.8) % Plt Count (150-400) X10^3/uL Neut % (Auto) (50-75) % Lymph % (Auto) (25-40) % [place] % (Auto) (3-14) % Eos % (Auto) (2-4) % Baso % (Auto) (0-2) % Neut # (Auto) (5211-8723) /uL Lymph # (Auto) (2083-5214) /uL [place] # (Auto) (0-900) /uL Eos # (Auto) (0-450) /uL Baso # (Auto) (0-100) /uL PT (10.1-12.7) SECONDS INR (0.9-1.3) Sodium (137-145) mmol/L Potassium (3.4-5.1) mmol/L Chloride (98-107) mmol/L Carbon Dioxide (22-32) mmol/L BUN (7-17) mg/dL Creatinine (0.52-1.04) mg/dL Estimated GFR (>60) mL/min BUN/Creatinine Ratio (6-22) Glucose (70-100) mg/dL Lactate 0.8 (0.7-2.1) mmol/L Calcium (8.4-10.2) mg/dL Total Bilirubin (0.2-1.3) mg/dL AST (14-36) IU/L ALT (<35) IU/L Alkaline Phosphatase (38-126) U/L Troponin I (0.01-0.034) ng/mL NT-Pro-B Natriuret Pep (<125) pg/mL Total Protein (6.3-8.2) g/dL Albumin (3.5-5.0) g/dL Globulin (1.7-4.1) g/dL Albumin/Globulin Ratio (1.0-2.8) Urine RBC None seen (0-5/HPF) Urine WBC None seen (0-5/HPF) Ur Squamous Epith Cells None seen (0-5/HPF) Urine Bacteria None seen (None) Ur Culture Indicated? Cult not indicated Urine Dip Bedside Urine Glucose Negative Bedside Urine Bilirubin - Negative Bedside Urine Ketone - Negative Urine Specific [place] 1.025 Bedside Urine Occult Blood ++ Bedside Urine pH 6.0 Bedside Urine Protein - Negative Bedside Urine Urobilinogen - Negative Bedside Urine Nitrite - Negative Bedside Urine Leukocytes - Negative Esterase MDM Narrative Medical decision making narrative: [37] year old patient presents with dry cough and expiratory wheeze Multiple etiologies for patient's symptoms considered including, but not limited to: [asthma vs. viral etiology vs. pneumonia vs. atypical pneumonia] Prior Charts reviewed in our EMR Primary Historian: patient Labs reviewed and interpreted by myself: No leukocytosis or left shift. No evidence of pneumonia. Electrolytes within normal limits. We did discuss the utility of respiratory panel but sure the opinion that it is not needed as is unlikely to change the course. Imaging reviewed: Chest x-ray without acute findings Patient's symptoms improved over duration of stay with above-stated therapies. Given her ongoing symptoms, productive sputum and history of smoking I will send a prescription for doxycycline to cover atypical pneumonia as well as a prescription for a prednisone taper given her improvement with the recent course. Findings and discharge diagnosis discussed with patient/family followed by verbalization of understanding Return precautions discussed with patient/family whom verbalize understanding of diagnosis and plan Discharge Plan Departure Patient Disposition: Home Clinical Impression: Atypical pneumonia Activity Restrictions/Additional Instructions: *You have been diagnosed with [ cough, wheeze, likely at least partly related to your smoking cessation, also as we discussed there is the possibility of atypical pneumonia.] *What to do: *Please continue to take your regular medications as directed. [x ] New medication prescriptions sent to your pharmacy: [ [facility]] [ ] New medication written as a paper prescription [ ] No new medications given *Please follow up with your primary care provider in 2-3 days, call for an appointment. Let them know you were seen in the Emergency Department and that we ask that you be seen in follow up. We will electronically transmit a record of today's note if your PCP is in our system *If you do not have a primary care provider please contact the [facility] Resource line at [phone]. They will ask some questions about your medical history and help get you set up with a doctor in the community. *Return to Emergency Department if you should have any new, worsening or concerning symptoms, such as [fever greater than 101 F, shaking chills, worsening pain, persistent vomiting or other bothersome symptoms] Prescriptions: New prednisone 10 mg tablet See Rx Instructions .ROUTE .COMPLEX Qty: 30 0RF Rx Instructions: Day 1,2,3: 40mg PO Daily Day 4,5,6: 30mg PO Daily Day 7,8,9: 20mg PO Daily Day 10,11,12: 10mg PO Daily #30 benzonatate 200 mg capsule 200 mg PO BID PRN (Reason: cough) Qty: 20 0RF doxycycline hyclate 100 mg tablet 100 mg PO BID Qty: 20 0RF No Action cholecalciferol (vitamin D3) 5,000 unit capsule 5,000 unit PO DAILY ferrous sulfate [iron] 325 mg (65 mg iron) Tablet 325 mg PO DAILY pantoprazole [Protonix] 40 mg tablet,delayed release (DR/EC) 40 mg PO DAILY Qty: 30 0RF sucralfate [Carafate] 1 gram tablet 1 g PO BID Qty: 30 0RF Referrals: Lesly Vu ARNP [Primary Care Provider] - Stand Alone Forms: Patient Portal/API
--- NOTE | 2023-03-10 21:05 | PC.NURSE ---
Using inhaler with spacer and it does help
[2023-03-10 21:14] LABS: Bacteria Urine None Seen; Culture Indicated Urine Cult Not Indicated; RBC Urine None Seen (0-5/HPF); Squamous Epithelial Cell Urine None Seen (0-5/HPF); WBC Urine None Seen (0-5/HPF)
[2023-03-10] MEDS: methylPREDNISolone 125 MG/2 ML VIAL IV (21:47)
[2023-03-10] MEDS: ALBUTEROL/IPRATROPIUM 3 ML AMPUL INH (21:48)
== END 2023-03-10 22:14 | disposition home or self-care (01) ==
PROVIDERS: Emergency Provider Emergency Medicine; PCP Nurse Practitioner
DX: J18.9 Pneumonia, unspecified organism (principal)
CPT/HCPCS: 36415; 71045; 80053; 81003; 81015; 83605; 83880; 84484; 85025; 85610; 93005; 93010; 96374; 99284; J2930

== ENCOUNTER → 2023-06-01 15:14 | Outpatient (CLI) | payer OTHER, SELFPAY ==
[2023-06-01 16:04] LABS: Lipase 92 U/L (23-300)
[2023-06-02 07:45] LABS: Immunoglobulin A 217 mg/dL (87-352)
[2023-06-02 21:42] LABS: Anti Gliadin IgG Ab 2 units (0-19); Gliadin Gluten IgA 4 units (0-19); Tissue Transglutaminase IgA <2 U/mL (0-3); Tissue Transglutaminase IgG 6 U/mL (0-5)
== END ==
PROVIDERS: PCP Nurse Practitioner; Referring Provider Internal Medicine Gastroenterology; Visit Provider Internal Medicine Gastroenterology
DX: E66.01 Morbid (severe) obesity due to excess calories (principal); Z68.41 Body mass index [BMI] 40.0-44.9, adult; K52.832 Lymphocytic colitis; K90.0 Celiac disease; R19.7 Diarrhea, unspecified; K21.9 Gastro-esophageal reflux disease without esophagitis
CPT/HCPCS: 36415; 82784; 83516; 83690